=== PATIENT | female | born 1950 | race Hispanic/Latino ===

== ENCOUNTER 2022-01-13 10:14 | Emergency (ER) | payer MEDICARE ==
[~2022-01-13] VITALS: Ht 157.5 cm; Wt 73.7 kg
[2022-01-13] MEDS ORDERED: VALACYCLOVIR1000 MG PO (11:53)
== END 2022-01-13 11:59 | disposition home or self-care (01) ==
LOC: FSED 10:22
DX: B02.9 Zoster without complications (principal); I10 Essential (primary) hypertension; E78.5 Hyperlipidemia, unspecified
CPT/HCPCS: 99282